=== PATIENT | female | born 1950 | race Hispanic/Latino ===

== ENCOUNTER 2017-10-25 16:11 | Emergency (ER) | payer MEDICARE, OTHER ==
[~2017-10-25] VITALS: Ht 152.4 cm; Wt 99.8 kg
[~2017-10-25 16:11] MED LIST: METOPROLOL SUC100 MG PO; PERCOCET 7.5-31 EACH PO; TOPROL XL50 MG PO
[2017-10-25] MEDS ORDERED: NORCO 10-325 T1 EACH PO (16:59)
== END 2017-10-25 17:06 | disposition home or self-care (01) ==
LOC: ED 16:11
DX: R04.0 Epistaxis (principal); Z79.899 Other long term (current) drug therapy
CPT/HCPCS: 99283